=== PATIENT | female | born 1970 | race Asian ===

== ENCOUNTER → 2016-08-31 | Outpatient (CLI) | payer OTHER ==
--- NOTE | ~2016-08-31 | CR229 ---
[facility] A Service of [facility] RADIOLOGY TEXT RESULTS PATIENT: AJ HELLER V LOCATION: [facility] : 66 UNIT #: [id number] AGE: [address]: CASSIE BOTELLO APRN SEX: F ORDER DR: [id number] [facility] [address] [place], [place] [address] [id number] O MR#: [id number] Acc #: [id number] NAME: AJ HELLER : 1970 SEX: F STUDY DATE/TIME: 08/31/2016 12:22 UNIT: [facility] ROOM: STUDY DESCRIPTION: CR Shoulder Min 2 View Lt Attending Physician: Cassie Botlelo Aprn Referring Physician: Cassie Botello Aprn Ordering Physician: Cassie Botello Aprn Primary Care Physician: Cassie Botello Aprn MEDICAL IMAGING REPORT This report is preliminary unless electronic signature is present EXAM Left shoulder 3 views, 08/31/2016 HISTORY Left shoulder pain, left side neck pain, decreased range of motion left shoulder for 1 month. No known injury. FINDINGS AP view with internal and external rotation of the shoulder girdle shows satisfactory relationship of the humeral head and glenoid fossa. The joint space is normal. There is no identifiable fracture or dislocation or bony destructive process about the shoulder girdle anatomy. The acromioclavicular joint is normal. There is no radiopaque foreign body in the region. IMPRESSION Normal left shoulder. Dictated by... Jose Jones M.D. THIS IS AN ELECTRONICALLY VERIFIED REPORT Jose Jones M.D. at 09/01/2016 2:11 PM KEELEY/colleen TD: 09/01/2016 09:44 JOB #: [id number] MEDICAL IMAGING REPORT Page 1 of 1 COPY
== END | disposition home or self-care (01) ==
LOC: CRAD 12:05
DX: M25.512 Pain in left shoulder (principal)
CPT/HCPCS: 73030